=== PATIENT | male | born 1970 | race Caucasian/White ===

== ENCOUNTER 2025-04-24 19:12 | Emergency (ER) | payer BC, SELFPAY ==
[2025-04-24 19:18] VITALS: BP 142/101
[2025-04-24 19:42] LABS: Hematocrit 43.2 % (39.0-52.0); Hemoglobin 14.6 g/dL (13.0-18.0); Mean Corp Hgb Conc. 33.8 g/dL (33.0-37.0); Mean Corpuscular Volume 84.2 fL (80.0-94.0); Nucleated Red Blood Cells % 0 % (-); Platelet Count 198 10^3/uL (130-400); Red Cell Dist. Width 12.2 % (11.5-14.5)
[2025-04-24 20:04] LABS: ALT (SGPT) 23 U/L (0-50); AST (SGOT) 21 U/L (17-59); Albumin 4.8 g/dl (3.5-5.0); Alkaline Phosphatase 90 U/L (38-126); Blood Urea Nitrogen 16 mg/dl (9-20); Calcium 9.8 mg/dl (8.4-10.2); Carbon Dioxide 25 mmol/L (22-30); Chloride 107 mmol/L (98-107); Glucose 79 mg/dl (70-99); Potassium 3.9 mmol/L (3.5-5.1); Sodium 139 mmol/L (135-145); Total Protein 7.4 g/dl (6.3-8.2); eGFR > 60.00
[2025-04-24 20:17] LABS: Troponin I < 0.012 ng/ml
--- NOTE | 2025-04-24 20:31 | ED.GENMED ---
History of Present Illness
General
Chief Complaint: Chest Pain
Source: patient
Exam Limitations: none
Time Seen by Provider: 04/24/25 20:29
Nursing documentation reviewed up to this point in time: agreed with
History of Present Illness
History of Present Illness:
Note:
CHIEF COMPLAINT(S)
Disorientation, weakness in the right arm and leg, and difficulty walking.
HISTORY OF PRESENT ILLNESS
The patient is a 54-year-old male presenting with symptoms of disorientation and difficulty coordinating movements, which began earlier today while working in the yard. The patient reports that the right arm and leg felt weak and were difficult to
control, which he initially attributed to feeling 'muddy' or fatigued. The patient describes the feeling as not dizziness but rather a lack of coordination and orientation. He also mentioned massaging his arm as it felt stressed, indicating some
discomfort. There was no direct mention of tingling or numbness. The patient has experienced difficulty walking, particularly when working in the yard, mentioning that these issues are not completely new but that today the experience feels different.
The ER provider conducted an examination and noted no definitive signs of a stroke. However, the symptoms were concerning enough to warrant further investigation. Current lab tests and an electrocardiogram of his heart appeared normal. A computed
tomography scan of the head has been planned, and a neurologist has been consulted for further evaluation.
PHYSICAL EXAM
General: Alert, no acute distress.
Skin: Warm, dry.
Head: Normocephalic, atraumatic.
Neck: Supple, trachea midline.
Eye, Ears, Nose, Mouth, and Throat: Oral mucosa moist.
Cardiovascular: Normal peripheral perfusion, No edema.
Respiratory: Respirations are non-labored.
Gastrointestinal: Abdomen nondistended.
Back: Normal range of motion, Normal alignment.
Musculoskeletal: Normal range of motion, normal strength.
Neurological: Alert and oriented to person, place, time, and situation, No focal neurological deficit observed.
Psychiatric: Cooperative, appropriate mood & affect.
PLAN
- Perform a computed tomography scan of the head for further evaluation of neurological symptoms.
- Consult with a neurologist for assessment and potential further neurological workup.
- Monitor and review lab results and electrocardiogram findings to rule out other causes such as cardiac issues.
- Continue observation of symptoms and reassess if any new symptoms develop or current symptoms worsen.
DIFFERENTIAL DIAGNOSIS
The Differential Diagnosis includes, in no particular order and is not limited to:
1. Transient Ischemic Attack
2. Stroke
3. Seizure
4. Hypoglycemia
5. Dehydration
6. Inner ear dysfunction
7. Neuropathy
8. Migraine with aura
9. Hypotension
10. Medication side effects
CARE-UPDATE
04/24/25 - 22:08
The patient, a [id number] male, exhibits difficulty walking and elevated blood pressure indicative of hypertensive urgency, potentially contributing to ataxia. Imaging studies, including CTA and CT perfusion, show no evidence of CVA.
Antihypertensive medication was recommended, and admission for further evaluation was advised. However, the patient has declined the treatment plan and chooses to leave against medical advice.
Disposition:
SUMMARY OF ENCOUNTER
The patient, a 54-year-old male, presented to the emergency department with disorientation, weakness in the right arm and leg, and difficulty walking, which began while working in the yard. Despite no definitive signs of a stroke upon examination,
CT imaging of the head and CT perfusion were conducted and showed no acute findings. Additionally, blood pressure was elevated, indicating hypertensive urgency, which could contribute to the symptoms. The patient was advised about the risks
associated with his condition, including the potential for stroke, heart attack, kidney failure, and . Despite understanding these risks, the patient decided to leave the hospital against medical advice.
DISPOSITION
Left Against Medical Advice [AMA]
PLAN
- Careful monitoring was advised, which includes following up with primary care for blood pressure management and continued evaluation of neurological symptoms.
- Recommendations for antihypertensive medication were made, and the patient was advised of their importance in managing his condition.
INDEPENDENT REVIEW OF LABS AND INTERPRETATION OF TESTS
- My independent interpretation of the CT of the head is that there are no acute findings.
PATIENT EDUCATION AND COUNSELING
The patient and his family were educated on the potential risks of not receiving treatment, including stroke, heart attack, kidney failure, and .
FOLLOW-UP INSTRUCTIONS
The patient is advised to follow up with primary care immediately for further assessment and management of hypertensive urgency.
MEDICAL DECISION MAKING
- Number and Complexity of Problems Addressed: Chronic conditions affecting care include hypertensive urgency and difficulty walking. The differential diagnosis includes transient ischemic attack, stroke, seizure, hypoglycemia, dehydration, inner
ear dysfunction, neuropathy, migraine with aura, hypotension, and medication side effects.
- Data:
Category 1
- My independent interpretation of CT imaging shows no acute findings.
- Risk:
Care significantly affected by Social Determinants of Health as the patient decided to leave against medical advice despite understanding the associated risks.
DIAGNOSIS
- Hypertensive urgency (ICD-10: I16.0)
- Difficulty walking (ICD-10: R26.2)
Past History
Past History
ED Past Medical History: None
ED Past Surgical History: Tonsilectomy
Social History
Tobacco: Non-smoker
Alcohol: Occasional
Drug: None
Personal:
Living: with family
Employment: Employed
Phy Exam
Physical Exam
Physical Exam:
.
Scores
Heart Score for Chest Pain Patients
STEMI patient?: Not applicable
Course
Orders/Labs/Results
Orders:
Orders
04/24/25 19:14
Electrocardiogram (*1) Urgent
Reason for Study: Other
Other Reason for Exam: Respiratory Distress
Cardiac Monitoring- Treatment ONCE
EKG- Treatment ONCE
IV Insert/Care/Rem.- Treatment PRN
CR Chest - 2 Views Urgent
Comment:
Reason For Exam: respiratory distress
O2 Therapy [RESP] Urgent
Titrate/Wean O2 to maintain O2 sat greater than (%): 93
Special Instructions: TO MAINTAIN CONTINUOUS O2 SATS >/= 93%
Pulse Ox/cont/shift [RESP] Urgent
Quantity: 1
Special Instructions: continuous pulse ox
04/24/25 19:35
Complete Blood Count/With Diff Urgent
Comprehensive Metabolic Panel Urgent
NT-proBNP Urgent
Troponin I Urgent
04/24/25 20:42
CT Head & Neck Angio W/wo IV Urgent
Comment:
Reason For Exam: difficulty walking, weakness
CT Head W/o Iv Contrast Urgent
Comment:
Reason For Exam: difficulty walking, weakness
Cardiac Monitoring- Treatment ONCE
04/24/25 20:45
CT Brain Perfusion Urgent
Comment:
Reason For Exam: difficulty walking, weakness
Abnormal Lab Results
04/24/25
19:35
MPV 10.5 H fL
(7.4-10.4)
04/24/25 19:35
04/24/25 19:35
Vital Signs
Initial and Last Documented VS:
Initial Vital Signs
Temp Pulse Resp BP Pulse Ox
98.2 F 85 20 142/101 97
04/24/25 19:18 04/24/25 19:18 04/24/25 19:18 04/24/25 19:18 04/24/25 19:18
Last Documented Vital Signs
Temp Pulse Resp BP Pulse Ox
98.2 F 68 18 164/101 94
04/24/25 19:18 04/24/25 22:00 04/24/25 22:00 04/24/25 22:00 04/24/25 22:00
*Pulse Oximetry
SaO2: 97
Oxygen Mode of Delivery: Room air
Patient hypoxic: no
*Critical Care Note
Total Time (30-74mins, 75-104mins- exclusive of procedures): Not Applicable
ED Attending Note
-
Portions of this chart may have been created with voice recognition software.� Occasional wrong word or��sound alike� substitutions may have occurred due to the inherent limitations of voice recognition software.
Discharge Plan
Departure
Patient Disposition: Against Medical Advice
Date of Disposition: 04/24/25
Time of Disposition: 22:13
Patient with high blood pressure during this ER visit?: Yes
Condition: Fair
Discharge Problem:
Hypertensive urgency, Ambulatory dysfunction
Instructions: High blood pressure emergencies, Weakness, BLOOD PRESSURE
Prescriptions:
No Action
atorvastatin 10 MG tablet
20 mg PO DAILY
amlodipine 10 MG tablet
10 mg PO DAILY
hydrochlorothiazide 12.5 MG capsule
12.5 mg PO DAILY
prochlorperazine maleate [Compazine] 10 mg tablet
10 mg PO Q8H PRN (Reason: nausea and vomiting) Qty: 10 0RF
Referrals:
Zachery Menezes MD [Family Provider, Internal Medicine] - Call in 1-3 days for appt
Interventions
Interventions:
*Risk Screen - Suicide Last Done: 04/24/25 19:18
*General Assessment Last Done: 04/24/25 19:18
*Neglect/Abuse Screening Last Done: 04/24/25 20:44
*ED- Fall Risk Assessment Last Done: 04/24/25 20:44
*ED COVID-19 Vaccine History Last Done: 04/24/25 20:44
ED- Cardiac Assessment Last Done: 04/24/25 20:44
Discharge Date and Time
Print Language: SINHALA
[2025-04-24 20:32] VITALS: BP 158/96
[2025-04-24 20:44] VITALS: BMI 33.0
[2025-04-24 21:36] VITALS: BP 169/102
[2025-04-24 22:00] VITALS: BP 164/101
== END 2025-04-24 22:33 | disposition left against medical advice (07) ==
LOC: EMR 19:12
PROVIDERS: EMERGENCY PHYSICIAN Emergency Medicine; FAMILY PHYSICIAN Internal Medicine
DX: I16.0 Hypertensive urgency (principal); R26.2 Difficulty in walking, not elsewhere classified; R53.1 Weakness; Z53.29 Procedure and treatment not carried out because of patient's decision for other reasons
CPT/HCPCS: 99284; 0042T; 70450; 70496; 70498; 71046; 80053; 83880; 84484; 85025; 93005; Q9967